=== PATIENT | female | born 1970 | race Caucasian/White ===

== ENCOUNTER 2022-05-07 09:25 | Emergency (ER) | payer BC, OTHER ==
[~2022-05-07] VITALS: Ht 162.6 cm; Wt 77.1 kg
[~2022-05-07 09:25] MED LIST: AMITIZA8 MCG; AMITIZA8 MCG PO; ARMOUR THYROID90 MG PO; DICYCLOMINE HCL20 MG PO; LEVOTHYROXINE100 MCG PO; LOSARTAN POTAS100 MG PO; MAXAIR AUTOHALE14 GM; PANTOPRAZOLE SO40 MG PO; PROGESTERONE200 MG PO; SYMAX0.125 MG PO
[2022-05-07] MEDS ORDERED: SODIUM CHLORIDE 0.9% 1000ML 1,000 ML IV SCH (09:30)
[2022-05-07] MEDS ORDERED: ONDANSETRON HCL INJ 2MG/ML 2ML 2 MG/ML VIAL IV STA (09:30)
[2022-05-07] MEDS ORDERED: FENTANYL CITRATE/PF 100MCG/2 ML INJ IV PRN (09:30)
[2022-05-07 09:48] LABS: BASOPHILS % 0.5 % (0.0-1.0); EOSINOPHILS # (AUTO) 0.1 (0.0-0.4); EOSINOPHILS % 0.7 % (0.0-6.0); HEMATOCRIT 47.4 % (34.2-44.1); HEMOGLOBIN 14.5 g/dL (12.0-16.0); LYMPHOCYTES # (AUTO) 3.6 (1.0-3.2); LYMPHOCYTES % 42.1 % (18.0-39.1); MEAN CORPUSCULAR HEMOGLOBIN 30.5 pg (28-32); MEAN CORPUSCULAR HGB CONC 30.6 g/dL (31-35); MEAN CORPUSCULAR VOLUME 99.8 fL (81-99); MONOCYTES # (AUTO) 0.5 (0.2-0.8); MONOCYTES % 6.2 % (4.4-11.3); NEUTROPHILS # (AUTO) 4.3 (2.1-6.9); NEUTROPHILS % 50.3 % (38.7-80.0); PLATELET COUNT 261 x10e3/uL (140-360); RED BLOOD COUNT 4.75 x10e6/uL (3.6-5.1); RED CELL DISTRIBUTION WIDTH 12.9 % (11.7-14.4)
[2022-05-07 09:52] LABS: CLARITY,URINE TURBID (CLEAR); COLOR,URINE YELLOW (YELLOW); KETONES,URINE NEGATIVE (NEGATIVE); LEUKOCYTE ESTERASE ,URINE SMALL (NEGATIVE); NITRITE,URINE POSITIVE (NEGATIVE); PROTEIN,URINE DIPSTICK 2+ (NEGATIVE)
[2022-05-07 09:53] LABS: URINE UROBILINOGEN 0.2 mg/dL (0.2 - 1)
[2022-05-07 09:58] LABS: BACTERIA,URINE MANY /HPF; EPITHELIAL CELLS,URINE FEW /LPF; RBC,URINE >50 /HPF (0-5); WBC,URINE (MAN) >50 /HPF (0-5)
[2022-05-07 10:12] LABS: ALBUMIN 4.1 g/dL (3.5-5.0); ALBUMIN/GLOBULIN RATIO 1.5 (0.8-2.0); ANION GAP 14.4 mmol/L (8-16); CALCIUM 9.4 mg/dL (8.4-10.2); CREATININE, SERUM 0.78 mg/dL (0.57-1.11); POTASSIUM 3.4 mmol/L (3.5-5.1)
[2022-05-07] MEDS ORDERED: CEFDINIR300 MG PO (11:24)
[2022-05-07 12:04] VITALS: BP 109/86
== END 2022-05-07 12:01 | disposition home or self-care (01) ==
LOC: ER 09:30
DX: R10.11 Right upper quadrant pain (principal); N39.0 Urinary tract infection, site not specified; R11.0 Nausea; R19.7 Diarrhea, unspecified; K21.9 Gastro-esophageal reflux disease without esophagitis; M54.9 Dorsalgia, unspecified; G89.29 Other chronic pain; Z20.822 Contact with and (suspected) exposure to COVID-19; R94.31 Abnormal electrocardiogram [ECG] [EKG]; Z98.84 Bariatric surgery status
CPT/HCPCS: 36415; 76705; 80053; 81001; 83690; 84484; 85025; 93005; 99284; C9113; J2405; J3010; J7030; U0002